=== PATIENT | female | born 1945 | race Caucasian/White ===

== ENCOUNTER 2023-07-05 21:28 | Inpatient (IN) ==
[2023-07-06] MEDS: NS 0.9% 1000 ml BAG 1,000 ML IV ONE (00:04)
[2023-07-06 00:22] LABS: High Sens Troponin Baseline 14 pg/mL (<15)
[2023-07-06 00:35] LABS: Urine Appearance Extra Turbid; Urine Bilirubin Negative (Negative); Urine Blood 3+ (Negative); Urine Color Yellow; Urine Glucose Negative (Negative); Urine Ketones Negative (Negative); Urine Nitrite Negative (Negative); Urine Protein Negative (Negative); Urine Specific Gravity 1.009 (1.002-1.030); Urine Urobilinogen Negative (Negative); Urine pH 6.5 (5.0-8.0)
[2023-07-06 00:40] LABS: Hematocrit 16.5 % (35-45); Hemoglobin 5.1 g/dL (11.5-14.3); Mean Corpuscular Hemoglobin 26.9 pg (27-33); Mean Corpuscular Hgb Conc 30.9 g/dL (31-36); Mean Corpuscular Volume 86.8 fL (80-97); Mean Platelet Volume 7.8 fL (7.5-11.2); Platelet Count 562 10^3/uL (150-450); Red Cell Distribution Width 14.2 % (12-17); White Blood Count 29.6 10^3/uL (3.8-11.8)
[2023-07-06 00:58] LABS: ALT 40 U/L (7-52); AST 39 U/L (13-39); Albumin 3.3 g/dL (3.2-5.2); Albumin/Globulin Ratio 1.4 (1-3); Alkaline Phosphatase 66 U/L (35-149); Anion Gap 12 mmol/L (2-16); Blood Urea Nitrogen 85 mg/dL (6-24); CO2 Carbon Dioxide 14 mmol/L (22-32); Calcium 9.1 mg/dL (8.6-10.3); Chloride 99 mmol/L (101-111); Creatinine, Serum 3.18 mg/dL (0.51-0.95); Globulin 2.3 g/dL (2-4); Glucose 120 mg/dL (70-100); Potassium 5.2 mmol/L (3.5-5.0); Sodium 125 mmol/L (135-145); Total Bilirubin 0.4 mg/dL (0.2-1.0); Total Protein 5.6 g/dL (6.4-8.9); eGFR CKD-EPI 14.6 (>60)
[2023-07-06 01:27] LABS: High Sensitivity Troponin 1 Hr 12 pg/mL (<15)
[2023-07-06 02:45] LABS: Urine Bacteria 3+ /HPF (Absent); Urine Red Blood Cell 3+(>10/hpf) /HPF (0-Trace); Urine Squamous Epithelial Cell Present /HPF (Absent); Urine White Blood Cell 2+(11-20/hpf) /HPF (0-Trace)
[2023-07-06 03:10] LABS: ABS Basophils 0.1 10^3/uL (0.0-0.1); ABS Lymphocytes 1.1 10^3/uL (1.0-4.8); ABS Monocytes 2.5 10^3/uL (0.0-0.9); ABS Nucleated RBC 0.05 10^3/ul; Lymphocyte % 3.6 %; Nucleated Red Blood Cells % 0.2 %/100WBC (0.0-0.8)
[2023-07-06 03:11] LABS: Anisocytosis 1+; Hypochromasia 2+; Polychromasia 2+
[2023-07-06] MEDS: Pantoprazole VIAL 40 MG VIAL IV SCH (04:35)
[2023-07-06 04:43] LABS: % Iron Saturation 5 % (15-55); .Transferrin 310 mg/dL (203-362); C Reactive Protein 96.43 mg/L (<8.01); Iron < 20 ug/dL (50-212); Total Iron Binding Capacity 434 mcg/dL (250-450); Unsaturated Iron Binding 414 ug/dL
[2023-07-06 04:46] LABS: Immature Retic Fraction 0.65
[2023-07-06 04:55] LABS: Corrected Retic Count 2.2 % (0.5-2.2); Hematocrit for Retic CNT 16.5 % (35-45)
[2023-07-06 05:26] LABS: Albumin 3.1 g/dL (3.2-5.2); Albumin/Globulin Ratio 1.5 (1-3); Calcium 8.8 mg/dL (8.6-10.3); Creatinine, Serum 2.84 mg/dL (0.51-0.95); Globulin 2.1 g/dL (2-4); Lithium 1.02 mmol/L (0.6-1.2); Magnesium 2.4 mg/dL (1.9-2.7); Total Bilirubin 0.4 mg/dL (0.2-1.0); Total Protein 5.2 g/dL (6.4-8.9); eGFR CKD-EPI 16.7 (>60)
[2023-07-06 05:39] LABS: ABS Lymphocytes 1.2 10^3/uL (1.0-4.8); ABS Monocytes 2.4 10^3/uL (0.0-0.9); ABS Neutrophils 22.3 10^3/uL (1.5-7.6); ABS Nucleated RBC 0.08 10^3/ul; Hematocrit 19.8 % (35-45); Hemoglobin 6.4 g/dL (11.5-14.3); Lymphocyte % 4.6 %; Mean Corpuscular Hemoglobin 27.6 pg (27-33); Mean Corpuscular Hgb Conc 32.1 g/dL (31-36); Mean Platelet Volume 8.1 fL (7.5-11.2); Nucleated Red Blood Cells % 0.3 %/100WBC (0.0-0.8); Platelet Count 438 10^3/uL (150-450); Red Blood Count 2.31 10^6/uL (3.63-4.92); Red Cell Distribution Width 15.1 % (12-17); White Blood Count 25.9 10^3/uL (3.8-11.8)
[2023-07-06 05:42] LABS: Urine Potassium Concentration 10.2 mmol/L
[2023-07-06] MEDS: cefTRIAXone 1 gm/50 mL D5W 1 GM/50 ML BAG IV SCH (06:08)
[2023-07-06] MEDS ORDERED: Senna TAB 8.6 mg TAB PO PRN (06:49)
[2023-07-06] MEDS ORDERED: Magnesium Hydroxide LIQ 30 ML UDC PO PRN (06:49)
[2023-07-06 09:51] LABS: Urine Osmo 205 mOsm/kg (150-1150)
[2023-07-06 09:52] LABS: Osmolality Serum 305 mOsm/kg (275-295)
[2023-07-06] MEDS: Magnesium Hydroxide LIQ 30 ML UDC PO SCH (10:25)
[2023-07-06 14:41] LABS: ABS Lymphocytes 0.6 10^3/uL (1.0-4.8); ABS Monocytes 2.1 10^3/uL (0.0-0.9); ABS Neutrophils 17.5 10^3/uL (1.5-7.6); ABS Nucleated RBC 0.04 10^3/ul; Eosinophil % 0.1 %; Hematocrit 30.4 % (35-45); Hemoglobin 9.4 g/dL (11.5-14.3); Lymphocyte % 3.1 %; Mean Corpuscular Hemoglobin 27.8 pg (27-33); Mean Corpuscular Volume 89.7 fL (80-97); Mean Platelet Volume 7.5 fL (7.5-11.2); Nucleated Red Blood Cells % 0.2 %/100WBC (0.0-0.8); Platelet Count 359 10^3/uL (150-450); Red Cell Distribution Width 14.6 % (12-17); White Blood Count 20.2 10^3/uL (3.8-11.8)
[2023-07-06 14:46] LABS: ALT 36 U/L (7-52); AST 30 U/L (13-39); Albumin 3.2 g/dL (3.2-5.2); Albumin/Globulin Ratio 1.4 (1-3); Alkaline Phosphatase 70 U/L (35-149); Anion Gap 10 mmol/L (2-16); Blood Urea Nitrogen 69 mg/dL (6-24); CO2 Carbon Dioxide 15 mmol/L (22-32); Calcium 9.3 mg/dL (8.6-10.3); Chloride 112 mmol/L (101-111); Creatinine, Serum 2.73 mg/dL (0.51-0.95); Globulin 2.3 g/dL (2-4); Glucose 82 mg/dL (70-100); Potassium 5.2 mmol/L (3.5-5.0); Sodium 137 mmol/L (135-145); Total Bilirubin 0.5 mg/dL (0.2-1.0); Total Protein 5.5 g/dL (6.4-8.9); eGFR CKD-EPI 17.5 (>60)
[2023-07-06] MEDS: Lactated Ringers 1000 ml BAG 1,000 ML IV SCH (16:30)
[2023-07-06 18:43] LABS: Folate > 20.00 ng/mL (5.90-24.80)
[2023-07-06 18:44] LABS: Vitamin B12 1250 pg/mL (180-914)
[2023-07-06 19:20] LABS: Calcium 9.2 mg/dL (8.6-10.3); Creatinine, Serum 2.62 mg/dL (0.51-0.95); Potassium 4.8 mmol/L (3.5-5.0); eGFR CKD-EPI 18.4 (>60)
[2023-07-06] MEDS: Senna TAB 8.6 mg TAB PO SCH (21:18)
[2023-07-06] MEDS: Polyethylene Glycol 3350 17 GM PACKET PO SCH (21:19)
[2023-07-07 04:46] LABS: Hemoglobin 9.5 g/dL (11.5-14.3); Mean Corpuscular Hemoglobin 27.8 pg (27-33); Mean Corpuscular Hgb Conc 31.8 g/dL (31-36); Mean Corpuscular Volume 87.5 fL (80-97); Mean Platelet Volume 7.3 fL (7.5-11.2); Platelet Count 326 10^3/uL (150-450); Red Blood Count 3.43 10^6/uL (3.63-4.92); Red Cell Distribution Width 14.7 % (12-17); White Blood Count 19.9 10^3/uL (3.8-11.8)
[2023-07-07 04:48] LABS: ABS Eosinophils 0.1 10^3/uL (0.0-0.5); ABS Lymphocytes 0.9 10^3/uL (1.0-4.8); ABS Monocytes 2.1 10^3/uL (0.0-0.9); ABS Neutrophils 16.7 10^3/uL (1.5-7.6); ABS Nucleated RBC 0.06 10^3/ul; Eosinophil % 0.4 %; Lymphocyte % 4.7 %; Nucleated Red Blood Cells % 0.3 %/100WBC (0.0-0.8)
[2023-07-07 05:03] LABS: Albumin 3.1 g/dL (3.2-5.2); Albumin/Globulin Ratio 1.4 (1-3); Calcium 9.1 mg/dL (8.6-10.3); Creatinine, Serum 2.24 mg/dL (0.51-0.95); Globulin 2.2 g/dL (2-4); Magnesium 3.1 mg/dL (1.9-2.7); Potassium 4.7 mmol/L (3.5-5.0); Total Bilirubin 0.5 mg/dL (0.2-1.0); Total Protein 5.3 g/dL (6.4-8.9); eGFR CKD-EPI 22.2 (>60)
[2023-07-07] MEDS: cefTRIAXone 1 gm/50 mL D5W 1 GM/50 ML BAG IV SCH (06:08)
[2023-07-07] MEDS: Ondansetron 4 mg VIAL 2 MG/ML 2 ml VIAL IV PRN (14:48)
[2023-07-08 06:53] LABS: Hematocrit 28.7 % (35-45); Hemoglobin 9.3 g/dL (11.5-14.3); Mean Corpuscular Hemoglobin 27.7 pg (27-33); Mean Corpuscular Hgb Conc 32.4 g/dL (31-36); Mean Corpuscular Volume 85.5 fL (80-97); Mean Platelet Volume 7.9 fL (7.5-11.2); Platelet Count 368 10^3/uL (150-450); Red Blood Count 3.36 10^6/uL (3.63-4.92); Red Cell Distribution Width 14.7 % (12-17); White Blood Count 18.2 10^3/uL (3.8-11.8)
[2023-07-08 06:56] LABS: Creatinine, Serum 2.28 mg/dL (0.51-0.95); Magnesium 3.5 mg/dL (1.9-2.7); Potassium 5.5 mmol/L (3.5-5.0); eGFR CKD-EPI 21.7 (>60)
[2023-07-08 07:37] LABS: ABS Eosinophils 0.3 10^3/uL (0.0-0.5); ABS Lymphocytes 1.3 10^3/uL (1.0-4.8); ABS Neutrophils 14.5 10^3/uL (1.5-7.6); ABS Nucleated RBC 0.03 10^3/ul; Eosinophil % 1.6 %; Lymphocyte % 7.3 %; Nucleated Red Blood Cells % 0.2 %/100WBC (0.0-0.8)
[2023-07-08] MEDS ORDERED: Midazolam 10 mg/10 ml VIAL 1 mg/ml 10 ml VIAL (10 mg) ONE (14:56)
[2023-07-08] MEDS ORDERED: Flumazenil 0.5 mg/5 ml 0.1 MG/ML 5 ml VIAL IV PRN (15:00)
[2023-07-08] MEDS ORDERED: Naloxone 0.4 mg VIAL 0.4 mg/ml 1 ml VIAL IV PUSH PRN (15:00)
[2023-07-08] MEDS: fentaNYL 100 mcg/2 ml 50 MCG/ML VIAL IV SLOW PU ONE (17:12)
[2023-07-08] MEDS: Ketorolac 0.5% OPHTH 5 ML BTL BOTH EYES SCH (17:13)
[2023-07-08] MEDS: Lidocaine 2% JELLY 6 ML Topical TOPICAL ONE (17:57)
[2023-07-08] MEDS: Midazolam 10 mg/10 ml VIAL 1 mg/ml 10 ml VIAL (10 mg) IV SLOW PU ONE (17:58)
[2023-07-08] MEDS: Ondansetron 4 mg VIAL 2 MG/ML 2 ml VIAL IV ONE (17:59)
[2023-07-08] MEDS: Sodium Polystyrene ORAL.SUSP 15 GM/60 ML BTL PO ONE ×2 (18:04→18:45)
[2023-07-08] MEDS: Lactated Ringers 1000 ml BAG 1,000 ML IV ONE (18:52)
[2023-07-09 06:07] LABS: Hematocrit 31.5 % (35-45); Hemoglobin 10.3 g/dL (11.5-14.3); Mean Corpuscular Hgb Conc 32.7 g/dL (31-36); Mean Corpuscular Volume 85.6 fL (80-97); Mean Platelet Volume 7.5 fL (7.5-11.2); Platelet Count 408 10^3/uL (150-450); Red Blood Count 3.68 10^6/uL (3.63-4.92); Red Cell Distribution Width 14.7 % (12-17); White Blood Count 15.3 10^3/uL (3.8-11.8)
[2023-07-09 06:21] LABS: ABS Eosinophils 0.2 10^3/uL (0.0-0.5); ABS Lymphocytes 1.2 10^3/uL (1.0-4.8); ABS Monocytes 2.2 10^3/uL (0.0-0.9); ABS Neutrophils 11.6 10^3/uL (1.5-7.6); ABS Nucleated RBC 0.01 10^3/ul; Eosinophil % 1.5 %; Lymphocyte % 7.6 %
[2023-07-09 06:24] LABS: Calcium 8.7 mg/dL (8.6-10.3); Creatinine, Serum 2.11 mg/dL (0.51-0.95); Magnesium 3.6 mg/dL (1.9-2.7); Potassium 5.3 mmol/L (3.5-5.0); eGFR CKD-EPI 23.8 (>60)
[2023-07-09] MEDS: SODIUM ZIRCONIUM CYCLOSILICATE 5 GM PACKET PO ONE ×2 (16:56→19:45)
[2023-07-10] MEDS: CMCS: Lithium Carb ER 300 mg TAB(NF) PO SCH (08:22)
[2023-07-10 14:23] VITALS: BP 112/81
== END 2023-07-10 15:15 | DRG 811 ==
LOC: ED 21:28 → EDHOLD 21:28 → SUATTDRO 07-06 02:56 → SSU 07-06 07:56
PROVIDERS: ADMIT Internal Medicine; ATTEND Internal Medicine